=== PATIENT | male | born 1940 | race Caucasian/White ===

== ENCOUNTER 2018-03-29 09:31 | Emergency (ER) | payer MEDICARE, OTHER ==
[~2018-03-29] VITALS: Ht 180.3 cm; Wt 91.3 kg
[2018-03-29 10:18] LABS: BASOPHILS % (AUTO) 0.4 % (0-1); EOSINOPHILS # (AUTO) 0.6 X10'3 (0-0.9); EOSINOPHILS % (AUTO) 11.2 % (0-6); HEMATOCRIT 36.5 % (42.0-52.0); HEMOGLOBIN 11.5 g/dl (14.0-17.9); LYMPHOCYTES # (AUTO) 0.9 X10'3 (1.1-4.8); LYMPHOCYTES % (AUTO) 15.6 % (21-51); MEAN CORPUSCULAR HEMOGLOBIN 20.9 PG (27.0-31.0); MEAN CORPUSCULAR HGB CONC 31.4 % (33.0-36.5); MEAN CORPUSCULAR VOLUME 66.5 FL (78-98); MEAN PLATELET VOLUME 8.3 FL (7.4-10.4); MONOCYTES # (AUTO) 0.4 X10'3 (0-0.9); MONOCYTES % (AUTO) 6.6 % (2-12); NEUTROPHILS # (AUTO) 3.8 X10'3 (1.8-7.7); NEUTROPHILS % (AUTO) 66.2 % (42-75); PLATELET COUNT 183 X10'3 (140-440); RED BLOOD COUNT 5.49 X10'6 (4.70-6.10); RED CELL DISTRIBUTION WIDTH 15.6 % (11.5-14.5); WHITE BLOOD COUNT 5.8 X10'3 (4.5-11.0)
[2018-03-29 10:33] LABS: ALANINE AMINOTRANSFERASE 31 U/L (12-78); ALBUMIN 3.6 G/DL (3.4-5.0); ALBUMIN/GLOBULIN RATIO 1.1 (1.1-1.5); ALKALINE PHOSPHATASE 50 IU/L (46-116); ANION GAP 6 (8-16); ASPARTATE AMINO TRANSFERASE 22 U/L (10-37); BILIRUBIN,TOTAL 0.7 MG/DL (0.1-1.0); BLOOD UREA NITROGEN 16 MG/DL (7-18); BUN/CREATININE RATIO 13.8 (5.4-32.0); CALCIUM 8.7 MG/DL (8.5-10.1); CHLORIDE 106 MMOL/L (99-107); CREATININE 1.16 MG/DL (0.60-1.10); GLUCOSE 90 MG/DL (70-104); POTASSIUM 3.7 MMOL/L (3.5-5.1); SODIUM 141 MMOL/L (135-145); TOTAL CARBON DIOXIDE 28.6 MMOL/L (24-32); TOTAL PROTEIN 6.8 G/DL (6.4-8.2); eGFR 61 ML/MIN
[2018-03-29 10:40] LABS: MAGNESIUM 1.9 MG/DL (1.5-2.4)
[2018-03-29] MEDS ORDERED: potassium Cl 20 mEq SR tablet PO STA (11:03)
[2018-03-29 11:42] VITALS: BP 159/74
== END 2018-03-29 11:44 | disposition home or self-care (01) ==
LOC: ER 09:31
DX: R00.2 Palpitations (principal); Z87.891 Personal history of nicotine dependence
CPT/HCPCS: 36415; 71045; 80053; 83735; 83880; 84484; 85025; 93005; 99284

== ENCOUNTER 2020-09-10 11:29 | Day surgery (SDC) | payer MEDICARE, OTHER ==
[2020-09-06 09:16] LABS: BASOPHILS # (AUTO) 0.1 X10'3 (0-0.2); BASOPHILS % (AUTO) 1.6 % (0-1); EOSINOPHILS # (AUTO) 0.8 X10'3 (0-0.9); EOSINOPHILS % (AUTO) 12.4 % (0-6); HEMATOCRIT 35.8 % (42.0-52.0); HEMOGLOBIN 11.5 g/dl (14.0-17.9); LYMPHOCYTES # (AUTO) 1.4 X10'3 (1.1-4.8); LYMPHOCYTES % (AUTO) 22.1 % (21-51); MEAN CORPUSCULAR HEMOGLOBIN 20.9 PG (27.0-31.0); MEAN CORPUSCULAR HGB CONC 32.1 g/dL (33.0-36.5); MEAN PLATELET VOLUME 8.7 FL (7.4-10.4); MONOCYTES # (AUTO) 0.5 X10'3 (0-0.9); MONOCYTES % (AUTO) 7.5 % (2-12); NEUTROPHILS # (AUTO) 3.6 X10'3 (1.8-7.7); NEUTROPHILS % (AUTO) 56.4 % (42-75); PLATELET COUNT 202 X10'3 (140-440); RED BLOOD COUNT 5.51 X10'6 (4.70-6.10); RED CELL DISTRIBUTION WIDTH 16.4 % (11.5-14.5); WHITE BLOOD COUNT 6.5 X10'3 (4.5-11.0)
[2020-09-06 09:30] LABS: ALBUMIN 3.6 G/DL (3.4-5.0); ANION GAP 6 (8-16); BLOOD UREA NITROGEN 18 MG/DL (7-18); BUN/CREATININE RATIO 15.5 (5.4-32.0); CALCIUM 8.7 MG/DL (8.5-10.1); CHLORIDE 107 MMOL/L (99-107); CREATININE 1.16 MG/DL (0.60-1.10); GLUCOSE 104 MG/DL (70-104); POTASSIUM 4.3 MMOL/L (3.5-5.1); SODIUM 144 MMOL/L (135-145); TOTAL CARBON DIOXIDE 31.2 MMOL/L (24-32); eGFR 61 ML/MIN
[2020-09-06 09:31] LABS: PARTIAL THROMBOPLASTIN TIME 33 SECONDS (22-32)
[2020-09-06 09:52] LABS: PLATELET ESTIMATE NORMAL
[2020-09-06 09:53] LABS: ANISOCYTOSIS 1+; HYPOCHROMASIA 2+; MICROCYTOSIS 2+; POLYCHROMASIA 1+
[2020-09-06 09:54] LABS: ACANTHOCYTES 1+; ELLIPTOCYTES 1+; SCHISTOCYTES 1+; TEAR DROP CELLS FEW
[2020-09-10] VITALS (9 sets, daily range): BP systolic 133–154; BP diastolic 67–75
[~2020-09-10] VITALS: Ht 177.8 cm; Wt 86.5 kg
[2020-09-10] MEDS ORDERED: LORazepam 0.5 MG tablet PO PRN (11:45)
[2020-09-10] MEDS ORDERED: diphenhydrAMINE 25mg capsule PO PRN (11:45)
[2020-09-10] MEDS ORDERED: normal saline 1,000 ML IV SCH (11:45)
[2020-09-10] MEDS ORDERED: NITR0.4T48 PO (12:06)
[2020-09-10] MEDS ORDERED: PANT40TA54 PO (12:06)
[2020-09-10] MEDS ORDERED: FLO0.4C PO (12:06)
[2020-09-10] MEDS ORDERED: CALC500T63 PO (12:06)
[2020-09-10] MEDS ORDERED: SILD50TA53 PO (12:06)
[2020-09-10] MEDS ORDERED: OMEG-79 PO (12:06)
[2020-09-10] MEDS ORDERED: VITA-268 PO (12:06)
[2020-09-10] MEDS ORDERED: MULT-1085 PO (12:06)
[2020-09-10] MEDS ORDERED: BECL10.62 INH (12:06)
[2020-09-10] MEDS ORDERED: GABA-530 PO (12:06)
[2020-09-10] MEDS ORDERED: BUDE10.27 INH (12:06)
[2020-09-10] MEDS ORDERED: SOTA80TA73 PO (12:06)
[2020-09-10] MEDS ORDERED: FLUT16SP2 BOTHNARES (12:06)
[2020-09-10] MEDS ORDERED: APIX5TAB3 PO (12:06)
[2020-09-10] MEDS ORDERED: ATOR40TA72 PO (12:06)
[2020-09-10] MEDS ORDERED: FEXO-25 PO (12:06)
[2020-09-10] MEDS ORDERED: iohexol 350MG/ML 100ml bottle IV ONE (13:11)
[2020-09-10] MEDS ORDERED: midazolam 1 mg/ML 2ml injection ONE (13:11)
[2020-09-10] MEDS ORDERED: fentaNYL/PF 50MCG/1 ML 2ML syringe ONE (13:11)
[2020-09-10] MEDS ORDERED: LIDOcaine 1% (10mg/ml)w/preservative injection 20ml MDV ONE (13:11)
[2020-09-10] MEDS ORDERED: ondansetron/PF 4mg/2ml inj IV PRN (14:15)
[2020-09-10] MEDS ORDERED: OXAZEpam 15mg capsule PO PRN (14:15)
[2020-09-10] MEDS ORDERED: proCHLORperazine 10 MG/2 ml inj IV PRN (14:15)
[2020-09-10] MEDS ORDERED: HYDROcodone/acetaminophen 10/325mg tab PO PRN (14:15)
[2020-09-10] MEDS ORDERED: HYDROcodone/acetaminophen 5mg/325mg tablet PO PRN (14:15)
[2020-09-10] MEDS ORDERED: normal saline 1000ml 1,000 ML IV SCH (14:15)
== END 2020-09-10 16:50 | disposition home or self-care (01) ==
LOC: SSTAY O 11:29
PROVIDERS: ATTEND Internal Medicine Interventional Cardiology
DX: R07.89 Other chest pain (principal); I25.10 Atherosclerotic heart disease of native coronary artery without angina pectoris; I12.9 Hypertensive chronic kidney disease with stage 1 through stage 4 chronic kidney disease, or unspecified chronic kidney disease; N18.9 Chronic kidney disease, unspecified; I48.91 Unspecified atrial fibrillation; K21.9 Gastro-esophageal reflux disease without esophagitis; E78.5 Hyperlipidemia, unspecified; Z79.01 Long term (current) use of anticoagulants; Z79.899 Other long term (current) drug therapy; Z95.5 Presence of coronary angioplasty implant and graft; Z88.8 Allergy status to other drugs, medicaments and biological substances; Z87.891 Personal history of nicotine dependence
CPT/HCPCS: 36415; 80048; 85025; 85610; 85730; 93005; 93459; 99152; C1769; J1644; J2001; J2250; J3010; J7030; Q0163; Q9967; 85008; A4620; A6258

== ENCOUNTER 2021-07-11 03:05 | Emergency (ER) | payer MEDICARE, OTHER ==
[~2021-07-11] VITALS: Ht 177.8 cm; Wt 87.3 kg
[~2021-07-11 03:05] MED LIST: APIX5TAB3 PO; ATOR40TA72 PO; BECL10.62 INH; BUDE10.27 INH; CALC500T63 PO; FEXO-25 PO; FLO0.4C PO; FLUT16SP2 BOTHNARES; GABA-530 PO; MULT-1085 PO; NITR0.4T48 PO; OMEG-79 PO; PANT40TA54 PO; SILD50TA53 PO; SOTA80TA73 PO; VITA-268 PO
[2021-07-11] MEDS ORDERED: tranexamic acid 1gm/0.7% sal. 100 ML IV ONE (03:30)
[2021-07-11] MEDS ORDERED: tranexamic acid 100mg/ml inj. IV ONE (03:30)
--- NOTE | 2021-07-11 03:30 | NUR ---
Patient began complaining of dizziness and became pale. MD Teran at bedside. Placed patient in reverse trendelenberg and smptoms resolvde within 5 minutes. Patient denied any chest pain during episode and never had LOC.
[2021-07-11 03:51] LABS: BASOPHILS # (AUTO) 0.1 X10'3 (0-0.2); BASOPHILS % (AUTO) 0.7 % (0-1); EOSINOPHILS # (AUTO) 0.7 X10'3 (0-0.9); EOSINOPHILS % (AUTO) 8.9 % (0-6); HEMATOCRIT 35.9 % (42.0-52.0); HEMOGLOBIN 11.4 g/dl (14.0-17.9); LYMPHOCYTES # (AUTO) 1.5 X10'3 (1.1-4.8); MEAN CORPUSCULAR HEMOGLOBIN 20.7 PG (27.0-31.0); MEAN CORPUSCULAR HGB CONC 31.8 g/dL (33.0-36.5); MEAN CORPUSCULAR VOLUME 65.1 FL (78-98); MEAN PLATELET VOLUME 8.8 FL (7.4-10.4); MONOCYTES # (AUTO) 0.9 X10'3 (0-0.9); MONOCYTES % (AUTO) 10.4 % (2-12); NEUTROPHILS # (AUTO) 5.1 X10'3 (1.8-7.7); PLATELET COUNT 197 X10'3 (140-440); RED BLOOD COUNT 5.52 X10'6 (4.70-6.10); RED CELL DISTRIBUTION WIDTH 16.2 % (11.5-14.5); WHITE BLOOD COUNT 8.3 X10'3 (4.5-11.0)
[2021-07-11 04:02] LABS: ALBUMIN 3.3 G/DL (3.4-5.0); ANION GAP 5 (8-16); BLOOD UREA NITROGEN 15 MG/DL (7-18); BUN/CREATININE RATIO 13.2 (5.4-32.0); CALCIUM 8.3 MG/DL (8.5-10.1); CHLORIDE 107 MMOL/L (99-107); CREATININE 1.14 MG/DL (0.60-1.10); GLUCOSE 140 MG/DL (70-104); POTASSIUM 4.2 MMOL/L (3.5-5.1); SODIUM 140 MMOL/L (135-145); eGFR 62 ML/MIN
[2021-07-11] MEDS ORDERED: iohexol 350MG/ML 100ml bottle IV ONE (04:20)
[2021-07-11 04:51] LABS: PLATELET ESTIMATE NORMAL
[2021-07-11 04:52] LABS: ANISOCYTOSIS 1+; MICROCYTOSIS 2+
[2021-07-11 04:56] LABS: ACANTHOCYTES 1+; ELLIPTOCYTES 1+; SCHISTOCYTES FEW
[2021-07-11 07:56] VITALS: BP 134/77
== END 2021-07-11 08:11 | disposition home or self-care (01) ==
LOC: ER 03:08
DX: I97.618 Postprocedural hemorrhage of a circulatory system organ or structure following other circulatory system procedure (principal); Z88.8 Allergy status to other drugs, medicaments and biological substances; Z79.899 Other long term (current) drug therapy; Y83.8 Other surgical procedures as the cause of abnormal reaction of the patient, or of later complication, without mention of misadventure at the time of the procedure; Y71.3 Surgical instruments, materials and cardiovascular devices (including sutures) associated with adverse incidents; Y92.89 Other specified places as the place of occurrence of the external cause
CPT/HCPCS: 36415; 71045; 71275; 80048; 85008; 85025; 93005; 96374; 99285; Q9967

== ENCOUNTER 2021-07-12 00:42 | Emergency (ER) | payer MEDICARE, OTHER ==
[~2021-07-12] VITALS: Ht 177.8 cm; Wt 86.4 kg
--- NOTE | 2021-07-12 00:50 | NUR ---
FEMSTOP APPLIED TO RIGHT GROIN AREA, WILL MONITOR
--- NOTE | 2021-07-12 03:43 | NUR ---
REMOVED FEM CLOT MACHINE, BLEEDING STILL PRESENT FROM LEFT GROIN SX SITE. DR GIRARD ORDERED DERMABOND, APPLIED. WILL CONTINUE TO MONITOR.
--- NOTE | 2021-07-12 04:42 | NUR ---
DERMABOND REAPPLIED TO RIGHT GROIN SITE WITH ICE PACK, WILL CONTINUE TO MONITOR.
--- NOTE | 2021-07-12 05:03 | NUR ---
BLEEDING RESOLVED WITH ICE AND DERMABOND, DR BABB AWARE, AWAITING DISPO.
[2021-07-12 05:31] VITALS: BP 126/71
== END 2021-07-12 05:49 | disposition home or self-care (01) ==
LOC: ER 00:43
DX: L76.22 Postprocedural hemorrhage of skin and subcutaneous tissue following other procedure (principal); Z88.8 Allergy status to other drugs, medicaments and biological substances; Z79.899 Other long term (current) drug therapy
CPT/HCPCS: 12001; 99283

== ENCOUNTER 2025-01-01 17:23 | Emergency (ER) | payer MEDICARE, OTHER ==
[~2025-01-01] VITALS: Ht 172.7 cm; Wt 82.8 kg
[2025-01-01 17:39] VITALS: TEMP 98.6
[2025-01-01 17:54] LABS: MEAN PLATELET VOLUME 10.1 FL (7.4-10.4); RED CELL DISTRIBUTION WIDTH 16.4 % (11.5-14.5)
[2025-01-01 18:06] LABS: CREATININE 1.01 MG/DL (0.60-1.10); PRO BRAIN NATRIURETIC PEPTIDE 1777 PG/ML (0-450); TOTAL CARBON DIOXIDE 28.3 MMOL/L (24-32); eCRCL 53 ML/MIN; eGFR 70 ML/MIN
--- NOTE | 2025-01-01 18:07 | ELECTROCARDIOGRAPH REPORT ---
[facility] Test Date: 2025-01-01 Test Time: 17:38:41 Pat Name: SHASHA BRODY Department: EMERGENCY ROOM Room: Gender: M Concrete Curer: MUNA : [id number] Requested By: DAKOTA LEE Order Number: [id number] Reading MD: Measurements Intervals [place] Rate: 70 P: 0 PA: 0 QRS: 78 QRSD: 91 T: -53 QT: 410 QTc: 443 Interpretive Statements Atrial fibrillation Borderline T abnormalities, inferior leads Baseline wander in lead(s) II Please click the below link to view image of tracing.
--- NOTE | 2025-01-01 18:19 | Physician Documentation ---
History of Present Illness ~ Chief Complaint: Chest Pain Stated Complaint: CP SOB Time Seen by MD: 19:33 Primary Medical Doctor: DR ARMSTRONG HPI Patient presents to the emergency room with two week history of intermittent back pain. Pain exacerbated with movement and palpation. He states that has seemed to be a one-sided in his back that has traveled to the other side of his back. Taken occasional ibuprofen for it. Says it wraps around to his right side of his torso at times. No chest pain. Patient has history of coronary artery disease and atrial fibrillation. He is not on blood thinners but has a watchman. He reports a negative stress test a proximally a months ago. He sees Dr. Melendez Medication Reconciliation Allergies: Coded Allergies: lisinopril (Verified Allergy, Intermediate, TICKLE IN THROAT, 01/01/25) metoprolol (Verified Allergy, Intermediate, SEVERE HYPOTENSION, 01/01/25) Scheduled Apixaban (Eliquis), 1 TAB PO BID, (Reported) Atorvastatin Calcium (Atorvastatin Calcium), 1 TAB PO DAILY, (Reported) Beclomethasone Dipropionate (Qvar Redihaler), 1 PUFF INH BID, (Reported) Budesonide/Formoterol Fumarate (Budesonide-Formoterol 80-4.5), 1 PUFF INH BID, (Reported) Calcium Carbonate (Calcium), 1 TAB PO DAILY, (Reported) Fexofenadine Hcl (Triny Allergy), 1 TAB PO Q12H, (Reported) Fluticasone Propionate (Flonase), 1 SPRAYS BOTHNARES DAILY, (Reported) Gabapentin (Gabapentin), 1 CAP PO BID, (Reported) Multivitamin (Multi Vitamin Daily), 1 TAB PO DAILY, (Reported) Nitroglycerin (Nitroglycerin), 1 TAB PO Q5min, (Reported) [place]-3 Fatty Acids/Fish Oil (Fish Oil 1,000 Mg Softgel), 1 CAP PO DAILY, (Reported) Pantoprazole Sodium (Pantoprazole Sodium), 1 TAB PO DAILY, (Reported) Sildenafil Citrate (Sildenafil Citrate), 1 TAB PO DAILY, (Reported) Sotalol Hcl* (Betapace*), 1 TAB PO BID, (Reported) Tamsulosin Hcl (Flomax), 1 CAP PO DAILY, (Reported) Vitamin B Complex (B Complex), 1 TAB PO DAILY, (Reported) Past Medical History Past Medical History: No Pertinent History, *CARDIOVASCULAR* Past Surgical History: noncontributory Alcohol Use: Rarely Drug Use: none Lives with: Spouse Lives In: Home Review of Systems ROS As stated above in the HPI, otherwise all systems are reviewed and negative. Physical Exam Vital Signs: Temperature: 98.6, Source: Temporal, Heart Rate: 83, Respiratory Rate: 16, BP: 141/81, Pulse Oximetry: 99, Weight: 82.800 Oxygen Flow Rate: 0 Physical Exam General: Patient is awake, alert, oriented x4 in no acute distress and well ap pearing.~ Head: Normocephalic and atraumatic. Eyes: Conjunctival normal. EOMI. Left eye blind ENT: Mucous membranes moist. Neck: Supple, trachea is midline. Chest: Clear to auscultation bilaterally without rales, rhonchi, or wheezes. There is no accessory muscle use or retractions. Cardiac: RRR without murmurs, gallops, or rubs. Extremities: Normal strength. Normal range of motion. No deformities or edema. Back: Tenderness to palpation to thoracic paraspinal musculature that has well as tenderness to palpation over right trapezius Progress Results/Orders Results/Orders Completed Orders - ALONZO CRANE MD Acetaminophen 325mg Tablet (Tylenol Tabl (01/01/25 20:00) Ibuprofen Tablet (Motrin Tablet) (01/01/25 20:00) Medications Received in ER Medications (Trade) Dose Ordered Sig/Rocio Route PRN Reason Start Time Stop Time Status Last Admin Dose Admin (Motrin tablet) 600 mg ONCE ONCE PO 01/01/25 20:00 01/01/25 20:01 DC 01/01/25 20:11 600 MG (Tylenol tablet) 650 mg ONCE ONCE PO 01/01/25 20:00 01/01/25 20:01 DC 01/01/25 20:12 650 MG Vital Signs 01/01/25 01/01/25 01/01/25 17:39 19:10 19:32 Temp 98.6 Pulse 83 80 Resp 16 16 16 B/P (MAP) 141/81 140/83 (102) Pulse Ox 99 98 O2 Flow Rate 0 0 Laboratory Tests Test 01/01/25 17:36 01/01/25 19:46 White Blood Count 9.2 Red Blood Count 5.27 Hemoglobin 11.1 L Hematocrit 34.2 L Mean Corpuscular Volume 64.8 L Mean Corpuscular Hemoglobin 21.0 L Mean Corpuscular Hemoglobin Concent 32.4 L Red Cell Distribution Width 16.4 H Platelet Count 195 Mean Platelet Volume 10.1 Neutrophils (%) (Auto) 73.3 Lymphocytes (%) (Auto) 10.0 L Monocytes (%) (Auto) 9.3 Eosinophils (%) (Auto) 6.5 H Basophils (%) (Auto) 0.9 Neutrophils # (Auto) 6.8 Lymphocytes # (Auto) 0.9 L Monocytes # (Auto) 0.9 Eosinophils # (Auto) 0.6 Basophils # (Auto) 0.1 CBC Comment Platelet Estimate Normal Red Blood Cell Morphology Perf Polychromasia 1+ Basophilic Stippling Anisocytosis 1+ Microcytosis 2+ Target Cells Few Elliptocytes 1+ Acanthocytes 1+ Schistocytes Few Sodium Level 138 Potassium Level 4.8 Chloride Level 103 Carbon Dioxide Level 28.3 Anion Gap 7 L Blood Urea Nitrogen 20 H Creatinine 1.01 Estimated GFR/1.73 m2 70 BUN/Creatinine Ratio 19.8 Glucose Level 141 H Calcium Level 9.0 Troponin I High Sensitivity 8 6 Pro-B-Type Natriuretic Peptide 1777 H Albumin 3.7 Chemistry Comments Troponin I High Sens Percent Delta 25 Troponin I Hi Sens Absolute Change -2 EKG/XRAY/CT/US/VASC/MRI EKG : Additional Comment EKG interpreted by myself shows time of 1738, rate 70, atrial fibrillation, normal axis, no ST changes Chest X-Ray : Additional Comments Exam: CHEST,SINGLE VIEW CHEST RADIOGRAPH Indication: CP Technique: DI CHEST,SINGLE VIEW Comparison: None FINDINGS: The cardiac silhouette is unremarkable. The lungs demonstrate left basilar airspace opacities. Elevation left hemidiaphragm. The pulmonary vasculature is unremarkable. Possible small left pleural effusion. There is no pneumothorax. Median sternotomy. Aortic atherosclerotic disease. IMPRESSION: As above Medical Decision Making Findings Patient presented to the emergency room with chief complaint of back pain as per HPI. Differentials include but are not limited to ACS, musculoskeletal pain, aortic pathology, pulmonary embolism therefore emergent labs and imaging indicated. Physical exam is reassuring for pain elicited with palpation. He has had a recent stress test a proximally eight months ago which was reassuring. Symptoms are atypical. Given physical exam and he had not feel he requires investigation into possible aortic pathology. ER precautions discussed Departure Disposition: HOME / SELF CARE / HOMELESS Impression: Primary Impression: Back pain Condition: Stable Discharge Instructions: Acute Back Pain, Adult Referrals: NO PRIMARY CARE PROVIDER (PCP) Signature Scribe Signature: No scribe Attestation: The note accurately reflects work and decisions made by me.Alonzo Crane MD 01/01/25 20:50 JOSE LUIS NUNEZ Jan 01, 2025 18:19 ALONZO CRANE MD Jan 01, 2025 19:48
[2025-01-01 18:28] LABS: PLATELET ESTIMATE NORMAL
--- NOTE | 2025-01-01 18:30 | RADIOLOGY REPORT ---
CHEST RADIOGRAPH Indication: CP Technique: DI CHEST,SINGLE VIEW Comparison: None FINDINGS: The cardiac silhouette is unremarkable. The lungs demonstrate left basilar airspace opacities. Dickens tion left hemidiaphragm. The pulmonary vasculature is unremarkable. Possible small left pleural effus ion. There is no pneumothorax. Median sternotomy. Aortic atherosclerotic disease. IMPRESSION: As above
[2025-01-01 18:33] LABS: ELLIPTOCYTES 1+
[2025-01-01 20:30] VITALS: BP_DIAS 83; PULSE 80; RESP 16; O2SAT 98
[2025-01-01 20:48] VITALS: BP_SYST 143
== END 2025-01-01 21:07 | disposition home or self-care (01) ==
LOC: ER 17:23
DX: M54.9 Dorsalgia, unspecified (principal); R06.02 Shortness of breath
CPT/HCPCS: 36415; 71045; 80048; 83880; 84484; 85008; 85025; 93005; 99285